=== PATIENT | male | born 1955 | race Caucasian/White ===

== ENCOUNTER 2021-12-18 14:54 | Emergency (ER) | payer SELFPAY ==
[2021-12-18 15:28] VITALS: BP 142/69; PULSE 79; TEMP 98; BMI 18.2
== END 2021-12-18 17:00 | disposition left against medical advice (07) ==
LOC: JER 14:54
DX: R06.02 Shortness of breath (principal); R05.1 Acute cough
CPT/HCPCS: 99281-25

== ENCOUNTER 2022-06-05 12:58 | Inpatient (IN) | payer OTHER ==
[2022-06-05] MEDS ORDERED: methylPREDNISolone NA SUCC 125 MG/2 ML VIAL IVPUSH ONE (13:12)
[2022-06-05] MEDS ORDERED: ALBUTEROL SO4 2.5/IPRATROPIUM 0.5 INH SOL 3 ML VIAL.NEB. NEB SCH (13:15)
[2022-06-05] MEDS: ALBUTEROL SO4 2.5/IPRATROPIUM 0.5 INH SOL 3 ML VIAL.NEB. NEB SCH ×6 (13:20→22:29)
[2022-06-05] MEDS ORDERED: methylPREDNISolone NA SUCC 125 MG/2 ML VIAL ONE (13:26)
[2022-06-05 14:08] LABS: BASO % 0.8 % (0-2.0); EOS % 3.7 % (0-4.5); HEMATOCRIT 47.9 % (35.4-49); LYMPH % 11.8 % (8-40); MCH 30.2 pg (25.7-33.7); MCHC 33.4 g/dl (32.0-35.9); MEAN CELL VOLUME 90.7 fl (80-96); MEAN PLT VOLUME 8.4 fl (7.5-11.1); MONO % 7.2 % (3.8-10.2); NEUT % 76.5 % (42.8-82.8); PLATELET COUNT 322 10^3/uL (134-434); RBC 5.28 M/mm3 (4.00-5.60); RDW 13.3 % (11.9-15.9); WHITE BLOOD COUNT 12.7 K/mm3 (4.0-10.0)
[2022-06-05 14:23] LABS: VENOUS O2 SATURATION 87.7 % (70-80); VENOUS PCO2 35.2 mmHg (38-52); VENOUS PH 7.441 (7.310-7.410)
[2022-06-05] MEDS ORDERED: AZITHROMYCIN IVPB 500 MG in DEXTROSE 5%-WATER - 250 ML IVPB ONE (14:27)
[2022-06-05] MEDS ORDERED: AZITHROMYCIN IVPB 500 MG/250 ML BAG IVPB ONE (14:35)
[2022-06-05 14:39] LABS: CALCIUM 9.4 mg/dL (8.5-10.1)
[2022-06-05 14:40] LABS: ALBUMIN 4.1 g/dl (3.4-5.0); BLOOD UREA NITROGEN 14.1 mg/dL (7-18)
[2022-06-05] MEDS ORDERED: MAGNESIUM SULF 50% (8.12 MEQ/2 ML-1 GM VIAL) IVPB ONE (14:40)
[2022-06-05 14:43] LABS: CREATININE 1.1 mg/dL (0.55-1.3)
[2022-06-05 14:44] LABS: BILIRUBIN,TOTAL 0.6 mg/dL (0.2-1); TOT PROT 7.4 g/dl (6.4-8.2)
[2022-06-05] MEDS ORDERED: MAGNESIUM SULFATE IN WATER 2 GM/50 ML IVPB IVPB ONE (15:19)
[2022-06-05] MEDS ORDERED: ALBUTEROL SO4 0.083% IH SOL 2.5 MG/3 ML VIAL.NEB. NEB ONE (16:57)
[2022-06-05] MEDS: methylPREDNISolone NA SUCC 40 MG/1 ML VIAL IVPUSH SCH (18:06)
[2022-06-05] MEDS ORDERED: methylPREDNISolone NA SUCC 40 MG/1 ML VIAL ONE (18:07)
[2022-06-05] MEDS ORDERED: ALBUTEROL SO4 2.5/IPRATROPIUM 0.5 INH SOL 3 ML VIAL.NEB. NEB ONE (22:24)
[2022-06-06] MEDS ORDERED: BENZOCAINE/MENTH/CETYLPYRD CL 1 EACH LOZENGE MM PRN (00:56)
[2022-06-06] MEDS: guaiFENesin/D-METHORPHAN HB 10 ML UNIT-DOSE CUPS PO PRN ×2 (01:08→20:35)
[2022-06-06] MEDS: methylPREDNISolone NA SUCC 40 MG/1 ML VIAL IVPUSH SCH ×3 (01:08→17:05)
[2022-06-06] MEDS: ALBUTEROL SO4 2.5/IPRATROPIUM 0.5 INH SOL 3 ML VIAL.NEB. NEB SCH ×3 (07:40→15:22)
[2022-06-06 09:09] LABS: HEMATOCRIT 44.9 % (35.4-49); HEMOGLOBIN 15.2 GM/dL (11.7-16.9); MCH 30.7 pg (25.7-33.7); MCHC 33.9 g/dl (32.0-35.9); MEAN CELL VOLUME 90.5 fl (80-96); MEAN PLT VOLUME 8.6 fl (7.5-11.1); PLATELET COUNT 289 10^3/uL (134-434); RBC 4.96 M/mm3 (4.00-5.60); RDW 13.2 % (11.9-15.9); WHITE BLOOD COUNT 11.7 K/mm3 (4.0-10.0)
[2022-06-06] MEDS: PANTOPRAZOLE 40 MG TABLET PO SCH (10:08)
[2022-06-06] MEDS: ENOXAPARIN NA (PORCINE) 40 MG/0.4 ML DISP.SYRIN SQ SCH (10:08)
[2022-06-06 10:33] LABS: ANISOCYTOSIS 1+; MACROCYTOSIS 0; TEAR DROP CELLS 2+
[2022-06-06 10:34] LABS: ALBUMIN 4.1 g/dl (3.4-5.0); BLOOD UREA NITROGEN 17.8 mg/dL (7-18); CALCIUM 9.1 mg/dL (8.5-10.1)
[2022-06-06 10:35] LABS: MAGNESIUM 2.6 mg/dL (1.8-2.4)
[2022-06-06 10:37] LABS: CREATININE 1.3 mg/dL (0.55-1.3); PHOSPHOROUS 3.8 mg/dL (2.5-4.9)
[2022-06-06 10:38] LABS: BILIRUBIN,TOTAL 0.5 mg/dL (0.2-1)
[2022-06-06] MEDS: AZITHROMYCIN IVPB 250 MG in DEXTROSE 5%-WATER - 250 ML IVPB SCH (10:44)
[2022-06-06] MEDS: FLUTICASONE/UMECLIDIN/VILANTER(200-62.5-25 TRELEGY ELLIPTA) INAHLER IH SCH (13:10)
[2022-06-06] MEDS ORDERED: ALBUTEROL SO4 2.5/IPRATROPIUM 0.5 INH SOL 3 ML VIAL.NEB. NEB PRN (16:39)
[2022-06-07] MEDS: methylPREDNISolone NA SUCC 40 MG/1 ML VIAL IVPUSH SCH ×4 (01:23→21:15)
[2022-06-07] MEDS: guaiFENesin/D-METHORPHAN HB 10 ML UNIT-DOSE CUPS PO PRN ×2 (05:34→21:18)
[2022-06-07 08:25] LABS: HEMOGLOBIN 15.4 GM/dL (11.7-16.9); MCH 30.6 pg (25.7-33.7); MCHC 33.4 g/dl (32.0-35.9); MEAN CELL VOLUME 91.7 fl (80-96); MEAN PLT VOLUME 9.1 fl (7.5-11.1); PLATELET COUNT 309 10^3/uL (134-434); RBC 5.01 M/mm3 (4.00-5.60); RDW 13.5 % (11.9-15.9); WHITE BLOOD COUNT 21.5 K/mm3 (4.0-10.0)
[2022-06-07 08:31] LABS: CALCIUM 9.2 mg/dL (8.5-10.1)
[2022-06-07 08:32] LABS: BLOOD UREA NITROGEN 26.4 mg/dL (7-18); MAGNESIUM 2.7 mg/dL (1.8-2.4)
[2022-06-07 08:35] LABS: CREATININE 1.4 mg/dL (0.55-1.3)
[2022-06-07] MEDS: PANTOPRAZOLE 40 MG TABLET PO SCH (09:30)
[2022-06-07] MEDS: AZITHROMYCIN IVPB 250 MG in DEXTROSE 5%-WATER - 250 ML IVPB SCH (09:33)
[2022-06-07] MEDS: ENOXAPARIN NA (PORCINE) 40 MG/0.4 ML DISP.SYRIN SQ SCH (09:33)
[2022-06-07] MEDS: FLUTICASONE/UMECLIDIN/VILANTER(200-62.5-25 TRELEGY ELLIPTA) INAHLER IH SCH (09:34)
[2022-06-07 14:49] VITALS: BMI 17.3
[2022-06-08] MEDS: methylPREDNISolone NA SUCC 40 MG/1 ML VIAL IVPUSH SCH ×4 (02:16→21:40)
[2022-06-08 07:23] LABS: CALCIUM 8.8 mg/dL (8.5-10.1)
[2022-06-08 07:24] LABS: BLOOD UREA NITROGEN 26.1 mg/dL (7-18); HEMATOCRIT 43.2 % (35.4-49); HEMOGLOBIN 14.6 GM/dL (11.7-16.9); MCH 30.9 pg (25.7-33.7); MCHC 33.7 g/dl (32.0-35.9); MEAN CELL VOLUME 91.5 fl (80-96); MEAN PLT VOLUME 8.6 fl (7.5-11.1); PLATELET COUNT 228 10^3/uL (134-434); RBC 4.72 M/mm3 (4.00-5.60); RDW 13.4 % (11.9-15.9); WHITE BLOOD COUNT 12.3 K/mm3 (4.0-10.0)
[2022-06-08 07:27] LABS: CREATININE 1.2 mg/dL (0.55-1.3)
[2022-06-08] MEDS: AZITHROMYCIN IVPB 250 MG in DEXTROSE 5%-WATER - 250 ML IVPB SCH (09:21)
[2022-06-08] MEDS: ENOXAPARIN NA (PORCINE) 40 MG/0.4 ML DISP.SYRIN SQ SCH (09:21)
[2022-06-08] MEDS: PANTOPRAZOLE 40 MG TABLET PO SCH (09:21)
[2022-06-08] MEDS: FLUTICASONE/UMECLIDIN/VILANTER(200-62.5-25 TRELEGY ELLIPTA) INAHLER IH SCH (09:22)
[2022-06-08] MEDS: SODIUM CHLORIDE 0.45% 1,000 ML IV SCH (09:23)
[2022-06-08] MEDS: guaiFENesin/D-METHORPHAN HB 10 ML UNIT-DOSE CUPS PO PRN (21:40)
[2022-06-09] MEDS: methylPREDNISolone NA SUCC 40 MG/1 ML VIAL IVPUSH SCH ×3 (03:05→16:13)
[2022-06-09] MEDS: SODIUM CHLORIDE 0.45% 1,000 ML IV SCH (08:32)
[2022-06-09 09:39] LABS: HEMATOCRIT 43.6 % (35.4-49); HEMOGLOBIN 14.7 GM/dL (11.7-16.9); MCHC 33.8 g/dl (32.0-35.9); MEAN PLT VOLUME 8.7 fl (7.5-11.1); PLATELET COUNT 213 10^3/uL (134-434); RBC 4.74 M/mm3 (4.00-5.60); RDW 13.3 % (11.9-15.9); WHITE BLOOD COUNT 10.1 K/mm3 (4.0-10.0)
[2022-06-09 09:52] LABS: CALCIUM 8.8 mg/dL (8.5-10.1)
[2022-06-09 09:53] LABS: ALBUMIN 3.3 g/dl (3.4-5.0); BLOOD UREA NITROGEN 25.2 mg/dL (7-18); MAGNESIUM 2.4 mg/dL (1.8-2.4)
[2022-06-09 09:56] LABS: PHOSPHOROUS 3.7 mg/dL (2.5-4.9)
[2022-06-09 09:57] LABS: BILIRUBIN,TOTAL 0.4 mg/dL (0.2-1)
[2022-06-09 10:47] LABS: ANISOCYTOSIS 0; HELMET CELLS 0; HOWELL-JOLLY BODIES 0; MACROCYTOSIS 0; OVALOCYTE 0; ROULEAU 0; SICKELED CELLS 0; TARGET CELLS 0; TEAR DROP CELLS 0; TOXIC GRANULATION 0
[2022-06-09] MEDS: PANTOPRAZOLE 40 MG TABLET PO SCH (11:11)
[2022-06-09] MEDS: AZITHROMYCIN IVPB 250 MG in DEXTROSE 5%-WATER - 250 ML IVPB SCH (11:11)
[2022-06-09] MEDS: FLUTICASONE/UMECLIDIN/VILANTER(200-62.5-25 TRELEGY ELLIPTA) INAHLER IH SCH (11:19)
[2022-06-09] MEDS: ENOXAPARIN NA (PORCINE) 40 MG/0.4 ML DISP.SYRIN SQ SCH (11:37)
[2022-06-09 15:04] VITALS: BP 135/72; PULSE 75; RESP 18; TEMP 98.2
[2022-06-09] MEDS ORDERED: methylPREDNISolone NA SUCC 40 MG/1 ML VIAL IVPUSH SCH (18:00)
== END 2022-06-09 18:25 | disposition left against medical advice (07) | DRG 191 ==
LOC: JER 12:58 → JERBED 14:49 → J4W 23:26
PROVIDERS: ADMIT Internal Medicine; ATTEND Internal Medicine
DX: J43.9 Emphysema, unspecified (principal); J81.1 Chronic pulmonary edema; E88.01 Alpha-1-antitrypsin deficiency; I10 Essential (primary) hypertension; D64.9 Anemia, unspecified; R06.09 Other forms of dyspnea; D72.829 Elevated white blood cell count, unspecified; E87.8 Other disorders of electrolyte and fluid balance, not elsewhere classified; F17.210 Nicotine dependence, cigarettes, uncomplicated; R09.02 Hypoxemia
CPT/HCPCS: 0241U-QW; 36415; 71045-TC-FY; 71250-TC; 80048; 80053; 82803; 83735; 84100; 84484; 85025; 85027; 93005; 93010; 94640; 94660; 94761; 97116-GP; 97162-GP; 99285-25

== ENCOUNTER 2022-12-31 00:55 | Inpatient (IN) | payer OTHER ==
[2022-12-31 01:02] VITALS: BMI 22.8
[2022-12-31] MEDS ORDERED: MAGNESIUM SULF 50% (8.12 MEQ/2 ML-1 GM VIAL) IVPB ONE (01:03)
[2022-12-31] MEDS ORDERED: MAGNESIUM SULFATE IN WATER 2 GM/50 ML IVPB IVPB ONE (01:09)
[2022-12-31] MEDS ORDERED: CEFTRIAXONE 1,000 MG in DEXTROSE 5%-WATER - 50 ML IVPB ONE (01:23)
[2022-12-31] MEDS: ALBUTEROL SO4 2.5/IPRATROPIUM 0.5 INH SOL 3 ML VIAL.NEB. NEB SCH ×4 (01:30→20:15)
[2022-12-31 01:32] LABS: BASO % 0.7 % (0-2.0); EOS % 4.8 % (0-4.5); HEMATOCRIT 48.9 % (35.4-49); HEMOGLOBIN 16.6 GM/dL (11.7-16.9); LYMPH % 13.5 % (8-40); MCH 30.4 pg (25.7-33.7); MEAN CELL VOLUME 89.3 fl (80-96); MEAN PLT VOLUME 7.7 fl (7.5-11.1); MONO % 8.1 % (3.8-10.2); NEUT % 72.9 % (42.8-82.8); PLATELET COUNT 308 10^3/uL (134-434); RBC 5.47 M/mm3 (4.00-5.60); RDW 14.2 % (11.9-15.9); WHITE BLOOD COUNT 16.8 K/mm3 (4.0-10.0)
[2022-12-31 01:38] LABS: ARTERIAL BLOOD GAS BASE EXCESS 0.2 mmol/L (-2-2); ARTERIAL BLOOD GAS PO2 82.9 mmHg (80-100)
[2022-12-31] MEDS ORDERED: CEFTRIAXONE 1 GM/50 ML BAG ONE (01:38)
[2022-12-31 01:40] LABS: ALLENS TEST POSITIVE
[2022-12-31 01:59] LABS: ALBUMIN 3.9 g/dl (3.4-5.0); BLOOD UREA NITROGEN 16.7 mg/dL (7-18); MAGNESIUM 2.1 mg/dL (1.8-2.4)
[2022-12-31 02:02] LABS: CREATININE 1.2 mg/dL (0.55-1.3); PHOSPHOROUS 3.9 mg/dL (2.5-4.9)
[2022-12-31 02:03] LABS: BILIRUBIN,TOTAL 0.3 mg/dL (0.2-1)
[2022-12-31] MEDS ORDERED: AZITHROMYCIN IVPB 500 MG/250 ML BAG IVPB ONE (02:22)
[2022-12-31] MEDS: AZITHROMYCIN IVPB 500 MG in DEXTROSE 5%-WATER - 250 ML IVPB ONE (02:31)
[2022-12-31] MEDS ORDERED: DOCUSATE SODIUM 100 MG CAPSULE (FP) PO PRN (03:38)
[2022-12-31] MEDS ORDERED: ACETAMINOPHEN 325 MG TABLET (FP) PO PRN (03:38)
[2022-12-31 03:55] LABS: INR 1.03 (0.83-1.09); PROTHROMBIN TIME (PATIENT) 11.9 SEC (9.7-13.0)
[2022-12-31 03:58] LABS: ACTIVATED PTT 46.8 SECONDS (25.2-36.5)
[2022-12-31] MEDS ORDERED: ALBUTEROL SO4 2.5/IPRATROPIUM 0.5 INH SOL 3 ML VIAL.NEB. NEB PRN (05:18)
[2022-12-31] MEDS: BUDESONIDE/FORMETEROL FUMARATE 160/4.5 mcg INHALER IH SCH ×2 (10:00→22:00)
[2022-12-31] MEDS ORDERED: TIOTROPIUM BROMIDE 2.5 MCG (SPIRIVA) RESPIMAT INHALER IH SCH (10:00)
[2022-12-31] MEDS: ENOXAPARIN NA (PORCINE) 40 MG/0.4 ML DISP.SYRIN SQ SCH (10:18)
[2022-12-31] MEDS: SERTRALINE HCL 50 MG TABLET (FP) PO SCH (10:19)
[2022-12-31] MEDS ORDERED: ALBUTEROL SO4 0.083% IH SOL 2.5 MG/3 ML VIAL.NEB. NEB PRN (12:16)
[2022-12-31] MEDS: guaiFENesin 200 MG/10 ML 10 ML UNIT-DOSE CUPS PO PRN (16:53)
[2022-12-31] MEDS: methylPREDNISolone NA SUCC 40 MG/1 ML VIAL IVPUSH SCH (18:24)
[2022-12-31] MEDS ORDERED: ATORVASTATIN CA 10 MG TABLET (FP) PO SCH (22:00)
[2023-01-01] MEDS: methylPREDNISolone NA SUCC 40 MG/1 ML VIAL IVPUSH SCH ×2 (02:19→09:04)
[2023-01-01] MEDS: guaiFENesin 200 MG/10 ML 10 ML UNIT-DOSE CUPS PO PRN ×2 (02:29→09:04)
[2023-01-01] MEDS ORDERED: CEFTRIAXONE 1 GM in DEXTROSE 5%-WATER - 50 ML IVPB SCH (06:00)
[2023-01-01] MEDS ORDERED: AZITHROMYCIN IVPB 500 MG/250 ML BAG IVPB SCH (06:00)
[2023-01-01] MEDS: AZITHROMYCIN IVPB 500 MG in DEXTROSE 5%-WATER - 250 ML IVPB ONE (06:13)
[2023-01-01] MEDS: ALBUTEROL SO4 2.5/IPRATROPIUM 0.5 INH SOL 3 ML VIAL.NEB. NEB SCH ×2 (07:37→12:02)
[2023-01-01] MEDS: ENOXAPARIN NA (PORCINE) 40 MG/0.4 ML DISP.SYRIN SQ SCH (09:22)
[2023-01-01] MEDS: SERTRALINE HCL 50 MG TABLET (FP) PO SCH (09:22)
[2023-01-01] MEDS: BUDESONIDE/FORMETEROL FUMARATE 160/4.5 mcg INHALER IH SCH (09:23)
[2023-01-01 10:25] VITALS: BP 121/70; PULSE 90; RESP 24; TEMP 98.4
== END 2023-01-01 14:54 | disposition home or self-care (01) | DRG 190 ==
LOC: JER 00:55 → JERBED 02:07 → J4W 04:53
PROVIDERS: ADMIT Internal Medicine; ATTEND Internal Medicine
DX: J44.1 Chronic obstructive pulmonary disease with (acute) exacerbation (principal); J18.9 Pneumonia, unspecified organism; R64 Cachexia; J96.11 Chronic respiratory failure with hypoxia; J98.11 Atelectasis; Z68.22 Body mass index [BMI] 22.0-22.9, adult; R91.1 Solitary pulmonary nodule; F17.210 Nicotine dependence, cigarettes, uncomplicated
CPT/HCPCS: 0241U-QW; 36415; 36600; 71045-TC-FY; 71250-TC; 80053; 82550; 82803; 82962; 83735; 84100; 84484; 85025; 85610; 85730; 93005; 93010; 94640; 99285-25

== ENCOUNTER 2024-03-31 19:18 | Inpatient (IN) | payer OTHER ==
[2024-03-31 20:11] LABS: VENOUS BASE EXCESS 2.5 mmol/L (-2-2); VENOUS O2 SATURATION 97.4 % (70-80); VENOUS PCO2 29.2 mmHg (38-52); VENOUS PH 7.533 (7.310-7.410)
[2024-03-31 20:12] LABS: HEMATOCRIT 41.5 % (35.4-49); HEMOGLOBIN 14.1 GM/dL (11.7-16.9); MCH 30.1 pg (25.7-33.7); MCHC 33.9 g/dl (32.0-35.9); MEAN CELL VOLUME 88.7 fl (80-96); MEAN PLT VOLUME 8.2 fl (7.5-11.1); PLATELET COUNT 224 10^3/uL (134-434); RBC 4.68 M/mm3 (4.00-5.60); RDW 13.7 % (11.9-15.9); WHITE BLOOD COUNT 17.2 K/mm3 (4.0-10.0)
[2024-03-31] MEDS ORDERED: VANCOMYCIN 1 GRAM (PRE-DOCKED) 1,000 MG/250 ML BAG IVPB ONE (20:16)
[2024-03-31] MEDS ORDERED: PIPERACILLIN/TAZOB 3.375 GM 3.375 GM/50 ML BAG IVPB ONE (20:17)
[2024-03-31] MEDS: SODIUM CHLORIDE 1,000 ML IV STA (20:24)
[2024-03-31] MEDS: PIPERACILLIN/TAZOB 3.375 GM 3.375 GM in DEXTROSE 5%-WATER - 50 ML IVPB ONE (20:24)
[2024-03-31 20:35] LABS: POTASSIUM 4.3 mmol/L (3.5-5.1)
[2024-03-31 20:37] LABS: CALCIUM 9.2 mg/dL (8.5-10.1)
[2024-03-31 20:38] LABS: ALBUMIN 1.9 g/dl (3.4-5.0); MAGNESIUM 2.1 mg/dL (1.8-2.4)
[2024-03-31 20:41] LABS: CREATININE 1.1 mg/dL (0.55-1.3)
[2024-03-31 20:43] LABS: BILIRUBIN,TOTAL 0.4 mg/dL (0.2-1); TOT PROT 5.6 g/dl (6.4-8.2)
[2024-03-31 20:46] LABS: N-TERMINAL BNP 652.1 pg/ml (5-125)
[2024-03-31] MEDS: VANCOMYCIN 1,000 MG in DEXTROSE 5%-WATER - 250 ML IVPB ONE (21:10)
[2024-03-31 21:49] LABS: PLATELET ESTIMATE ADEQUATE
[2024-03-31] MEDS ORDERED: guaiFENesin/D-METHORPHAN HB 10 ML UNIT-DOSE CUPS ONE (22:28)
[2024-03-31 22:45] LABS: EPI CELLS 10 /uL (0-25.1); HYALINE CASTS 2 /uL (0-3.1); PH,URINE 5.5 (5.0-8.0); URINE APPEARANCE CLOUDY; URINE BACTERIA 7 /uL (0-1359); URINE BILIRUBIN NEGATIVE (NEGATIVE); URINE COLOR DK YELLOW; URINE GLUCOSE (UA) NEGATIVE (NEGATIVE); URINE KETONE NEGATIVE (NEGATIVE); URINE LEUK ESTERASE NEGATIVE (NEGATIVE); URINE NITRITE NEGATIVE (NEGATIVE); URINE PROTEIN 2+ (NEGATIVE); URINE RBC 17 /uL (0-23.9); URINE WBC 15 /uL (0-25.8)
[2024-03-31] MEDS: guaiFENesin 200 MG/10 ML 10 ML UNIT-DOSE CUPS PO ONE (22:46)
[2024-04-01] MEDS: ACETAMINOPHEN 325 MG TABLET (FP) PO PRN (03:30)
[2024-04-01] MEDS ORDERED: PIPERACILLIN/TAZOB 3.375 GM 3.375 GM/50 ML BAG IVPB ONE (05:26)
[2024-04-01] MEDS: PIPERACILLIN/TAZOB 3.375 GM 3.375 GM in DEXTROSE 5%-WATER - 50 ML IVPB ONE (05:49)
[2024-04-01] MEDS ORDERED: ALBUTEROL SO4 2.5/IPRATROPIUM 0.5 INH SOL 3 ML VIAL.NEB. NEB ONE (07:31)
[2024-04-01 07:32] LABS: HEMATOCRIT 38.9 % (35.4-49); HEMOGLOBIN 13.8 GM/dL (11.7-16.9); MCH 31.2 pg (25.7-33.7); MCHC 35.5 g/dl (32.0-35.9); MEAN CELL VOLUME 87.9 fl (80-96); MEAN PLT VOLUME 8.1 fl (7.5-11.1); PLATELET COUNT 194 10^3/uL (134-434); RBC 4.42 M/mm3 (4.00-5.60); RDW 13.8 % (11.9-15.9)
[2024-04-01] MEDS: ALBUTEROL SO4 2.5/IPRATROPIUM 0.5 INH SOL 3 ML VIAL.NEB. NEB SCH (07:35)
[2024-04-01] MEDS: HEPARIN NA (PORCINE) 5,000 UNITS/ML 1ML VIAL SQ SCH (09:49)
[2024-04-01] MEDS: VANCOMYCIN/WATER FOR INJ (PEG) 750 MG/150 ML BAG IVPB SCH (09:49)
[2024-04-01] MEDS: predniSONE 20 MG TABLET (UD) PO SCH (09:49)
[2024-04-01 10:22] LABS: ANISOCYTOSIS 0; HELMET CELLS 0; HOWELL-JOLLY BODIES 0; MACROCYTOSIS 0; OVALOCYTE 0; ROULEAU 0; SICKELED CELLS 0; TARGET CELLS 0; TEAR DROP CELLS 0; TOXIC GRANULATION 0
[2024-04-01 12:01] LABS: ANISOCYTOSIS 0; HELMET CELLS 0; HOWELL-JOLLY BODIES 0; MACROCYTOSIS 0; ROULEAU 0; SICKELED CELLS 0; TARGET CELLS 0; TEAR DROP CELLS 0; TOXIC GRANULATION 0
[2024-04-01 12:14] LABS: OVALOCYTE 0
[2024-04-01] MEDS: PANTOPRAZOLE 40 MG TABLET PO SCH (12:25)
[2024-04-01] MEDS: PIPERACILLIN/TAZOB 3.375 GM 3.375 GM in DEXTROSE 5%-WATER - 50 ML IVPB SCH (12:26)
[2024-04-01] MEDS: guaiFENesin/D-METHORPHAN HB 10 ML UNIT-DOSE CUPS PO PRN (12:31)
[2024-04-01 14:03] LABS: OPIATES, URI NEGATIVE (NEGATIVE); PHENCYCLIDINE,URINE NEGATIVE (NEGATIVE); URINE BARBITURATES NEGATIVE (NEGATIVE); URINE BENZODIAZEPINES NEGATIVE (NEGATIVE)
[2024-04-01 14:04] LABS: COCAINE, UR POSITIVE (NEGATIVE); METHADONE, UR NEGATIVE (NEGATIVE); URINE AMPHETAMINES NEGATIVE (NEGATIVE)
[2024-04-01] MEDS: LORazepam 1 MG TABLET PO ONE (14:43)
[2024-04-01] MEDS: LORazepam 1 MG TABLET PO PRN (18:11)
[2024-04-01] MEDS: methylPREDNISolone NA SUCC 40 MG/1 ML VIAL IVPUSH SCH (18:12)
[2024-04-02] MEDS: PIPERACILLIN/TAZOB 3.375 GM 3.375 GM in DEXTROSE 5%-WATER - 50 ML IVPB SCH (02:09)
[2024-04-02 07:54] LABS: POTASSIUM 4.1 mmol/L (3.5-5.1)
[2024-04-02 07:55] LABS: CALCIUM 8.7 mg/dL (8.5-10.1)
[2024-04-02 07:56] LABS: BLOOD UREA NITROGEN 23.2 mg/dL (7-18)
[2024-04-02 07:59] LABS: CREATININE 0.6 mg/dL (0.55-1.3); PHOSPHOROUS 3.6 mg/dL (2.5-4.9)
[2024-04-02 08:24] LABS: INR 1.29 (0.83-1.09); PROTHROMBIN TIME (PATIENT) 14.5 SEC (9.7-13.0)
[2024-04-02] MEDS: VANCOMYCIN/WATER FOR INJ (PEG) 750 MG/150 ML BAG IVPB SCH (09:57)
[2024-04-02 12:21] VITALS: BMI 14.7
[2024-04-02] MEDS: POLYETHYLENE GLYCOL (HEALTHYLAX) 3350 17 GM PACKET PO ONE (18:18)
[2024-04-03] MEDS ORDERED: ALBUTEROL SO4 HFA INHALER IH PRN (13:08)
[2024-04-04 08:57] LABS: HEMATOCRIT 32.9 % (35.4-49); HEMOGLOBIN 11.5 GM/dL (11.7-16.9); MCH 30.7 pg (25.7-33.7); MCHC 34.8 g/dl (32.0-35.9); MEAN CELL VOLUME 88.1 fl (80-96); MEAN PLT VOLUME 8.4 fl (7.5-11.1); PLATELET COUNT 186 10^3/uL (134-434); RBC 3.74 M/mm3 (4.00-5.60); WHITE BLOOD COUNT 6.2 K/mm3 (4.0-10.0)
[2024-04-04 09:16] LABS: POTASSIUM 3.8 mmol/L (3.5-5.1)
[2024-04-04 09:22] LABS: BLOOD UREA NITROGEN 29.8 mg/dL (7-18); CALCIUM 8.5 mg/dL (8.5-10.1); MAGNESIUM 2.4 mg/dL (1.8-2.4)
[2024-04-04 09:25] LABS: CREATININE 0.7 mg/dL (0.55-1.3)
[2024-04-04 09:27] LABS: BILIRUBIN,TOTAL 0.3 mg/dL (0.2-1); TOT PROT 4.4 g/dl (6.4-8.2)
[2024-04-04 09:29] LABS: ALBUMIN 1.4 g/dl (3.4-5.0)
[2024-04-04] MEDS ORDERED: guaiFENesin 200 MG/10 ML 10 ML UNIT-DOSE CUPS PO PRN (09:50)
[2024-04-04 10:13] LABS: PLATELET ESTIMATE ADEQUATE
[2024-04-04] MEDS: FLUTICASONE/UMECLIDIN/VILANTER(100-62.5-25 TRELEGY ELLIPTA) INAHLER IH SCH (11:22)
[2024-04-04 15:57] VITALS: BP 126/65; RESP 20; TEMP 97.5
[2024-04-04] MEDS: AMINO ACIDS/PROTEIN HYDROLYS 30 ML LIQUID.PKT PO SCH (17:07)
[2024-04-04 17:34] VITALS: PULSE 88
[2024-04-04] MEDS ORDERED: methylPREDNISolone NA SUCC 40 MG/1 ML VIAL IVPUSH SCH (22:00)
== END 2024-04-04 20:17 | disposition left against medical advice (07) | DRG 190 ==
LOC: JER 19:18 → JERBED 22:37 → J8W 04-01 08:08
PROVIDERS: ADMIT Internal Medicine; ATTEND Nurse Practitioner Acute Care
DX: J43.9 Emphysema, unspecified (principal); E43 Unspecified severe protein-calorie malnutrition; J96.20 Acute and chronic respiratory failure, unspecified whether with hypoxia or hypercapnia; Z68.1 Body mass index [BMI] 19.9 or less, adult; E88.01 Alpha-1-antitrypsin deficiency; F14.10 Cocaine abuse, uncomplicated; F12.10 Cannabis abuse, uncomplicated; R00.1 Bradycardia, unspecified; Z99.81 Dependence on supplemental oxygen
CPT/HCPCS: 0241U-QW; 36415; 71045-TC-FY; 71275-TC; 80048; 80053; 80307; 81003; 82103; 82803; 83735; 83880; 84100; 84484; 85025; 85379; 85610; 85730; 87040; 87086; 88300-TC; 93005; 93010; 94640; 94660; 99285-25; G0480; J1644; Q9967